=== PATIENT | female | born 1935 | race Caucasian/White ===

== ENCOUNTER 2017-01-12 23:50 | Inpatient (IN) | payer MEDICARE, OTHER ==
--- NOTE | ~2017-01-12 | HP ---
History And Physical [place] [id number] [facility] [place]. [address] NAME: ADALGISA GRANGER : 33 STATUS : REG [facility]#: [id number] AGE: 81 ADM/REG DATE : 01/12/17 MR#: [id number] REPORT SERV DATE: 01/13/17 DICTATED BY: ODALYS JAMES III DATE: 01/13/17 REPORT STATUS : Draft TRANSCRIBED BY: MODMeeta DATE: 01/13/17 DATE OF ADMISSION: 01/12/2017 HISTORY OF PRESENT ILLNESS: This 81-year-old female was admitted to the hospital emergently with evidence for pneumatosis and small bowel obstruction. The patient complains of sudden onset of abdominal pain which began approximately 6 p.m. yesterday. The patient describes diffuse, nonlocalizing, severe abdominal pain. The patient states the pain is 10/10. This is associated with nausea and vomiting. The patient presented to the emergency room and was found on CT scan to have a small bowel volvulus with pneumatosis. Per the patient, she apparently had a similar episode approximately one year ago. At that time, she was seen by Dr. Hansel Hyatt. Subsequent workup including repeat CT scan showed no evidence for pneumatosis and surgery was not required. The patient has had a previous colectomy by Dr. Hyatt. He was contacted, but is not cashier and salesperson and his covering physician does not come to this hospital and I was, therefore, asked to see the patient. The patient describes the pain as 10/10. PAST MEDICAL HISTORY: 1. 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 2. History of colostomy closure. 3. History of right colectomy for carcinoid tumor. 4. History of atherosclerotic disease. 5. Glaucoma. 6. Hypothyroidism. 7. Irritable bowel syndrome. 8. Gastroesophageal reflux disease. PAST SURGICAL HISTORY: Includes colectomy with colostomy, and colostomy closure with resection of the ileocecal junction for carcinoid tumor. ALLERGIES: DICYCLOMINE. MEDICATIONS: FiberCon, Tums, vitamin D, Estrace, Synthroid, Claritin, magnesium oxide, and Detrol. FAMILY HISTORY: Unremarkable. REVIEW OF SYSTEMS: The patient's 14-point review of systems is otherwise unremarkable. PHYSICAL EXAMINATION: GENERAL: This is a female, in no acute distress. She is alert and appropriate. She appears chronically ill. HEENT: Unremarkable. Cranial nerves II through XII are normal. LUNGS: Clear. History And Physical [address] [place]. [address] NAME: ADALGISA GRANGER : 34 STATUS : REG [facility] PAT#: [id number] AGE: 81 ADM/REG DATE : 01/12/17 MR#: [id number] REPORT SERV DATE: 01/13/17 DICTATED BY: ODAYLS JAMES III DATE: 01/13/17 REPORT STATUS : Draft TRANSCRIBED BY: RANI DATE: 01/13/17 CARDIAC: Normal. ABDOMEN: Distended and diffusely tender with guarding and peritoneal signs. VITAL SIGNS: Blood pressure 125/86, temperature 98, and pulse 67. EXTREMITIES: Unremarkable. Again, her abdomen is distended with diffuse tenderness and guarding. LABORATORY DATA: CT scan of the abdomen and pelvis, which I reviewed shows evidence for small bowel volvulus with obstruction and ischemic bowel. This is an obstruction with extensive pneumatosis. White blood cell count 8.6 and hematocrit 37. Electrolytes are unremarkable. Calcium 6.2. Lipase is normal. ASSESSMENT: 1. An 81-year-old female with acute small bowel volvulus associated with obstruction, pneumatosis indicating mesenteric ischemia, and impending perforation. 2. History of previous sigmoid colectomy with colostomy. 3. History of colostomy closure. 4. History of resection of ileocecal junction for carcinoid tumor in the past. PLAN: The patient will be taken emergently to the operating room for laparotomy with probable bowel resection. On this procedure, the risks, benefits, and alternatives, including but not limited to the risk for bleeding, infection, enterotomy, injury to abdominal structure, postop small bowel obstruction, ileus, incisional hernia, dehiscence, anastomotic leak, resulting in peritonitis, sepsis, and , and unforeseen complications including deep venous thrombosis, pulmonary embolus, myocardial infarction, stroke, pneumonia, , have been explained to the patient and family at length. The fact that this is a major operation in an attempt to save the patient's life and without surgery in this setting, her chance for survival was very small has been explained. The patient and family had questions which were answered. They clearly understand the risks and agreed to surgery as planned. CHULA/RANI Odalys James III, M.D. / [id number] CC: Tray Olivarez III, II
--- NOTE | ~2017-01-12 | DS ---
Discharge Summary [facility] [address] [place]. [address] NAME: ADALGISA GRANGER : 34 STATUS : DIS IN PAT#: [id number] AGE: 81 ADM/REG DATE : 01/13/17 MR#: [id number] REPORT SERV DATE: 01/27/17 DICTATED BY: ODALYS JAMES III DATE: 01/26/17 REPORT STATUS : Draft TRANSCRIBED BY: RANI DATE: 01/26/17 Data Collection from hospitalization DISCHARGE DIAGNOSES: 1. Small bowel volvulus with small bowel obstruction. 2. History of carcinoid tumor status post sigmoid colectomy with colostomy-colostomy closure. 3. History of atherosclerotic disease. 4. Glaucoma. 5. Hypothyroidism. 6. Irritable bowel syndrome. 7. Gastroesophageal reflux disease. CONSULTATIONS: None. PROCEDURES PERFORMED: 1. Laparotomy with lysis of adhesions and correction of small bowel volvulus, 01/13/2017. 2. CT scan of the abdomen and pelvis without contrast, 01/12/2017. DISCHARGE MEDICATIONS: FiberCon one tablet every morning, Tums 500 mg twice a day, vitamin D 50,000 units on Wednesdays and Sundays, Estrace vaginal cream one application vaginally on Wednesdays and Sundays, Synthroid 100 mcg every morning, Claritin 10 mg every morning, Mag- Ox 800 mg twice a day, Percocet 7.5/325 one tablet three times a day as needed, Myrbetriq as instructed, Detrol LA as instructed, ketamine/cyclobenzaprine/gabapentin/lidocaine one application topically daily as needed, Travatan one drop at bedtime. CONDITION AT DISCHARGE: Stable. DISPOSITION: The patient was discharged home on a soft diet with activities as instructed. She would follow up with me two weeks following discharge. HOSPITAL COURSE: This is an 81-year-old female, who to the hospital emergently with evidence for pneumatosis and small bowel obstruction. The patient had complained of the sudden onset of abdominal pain, which began at approximately 6 p.m. on the day prior to admission. The patient described diffuse nonlocalizing severe abdominal pain. The patient said the pain was 10/10 and was associated with nausea and vomiting. The patient presented to the emergency room and was found on CT scan to have a small bowel volvulus with pneumatosis. According to the patient, she apparently had a similar episode approximately one year ago. At that time, she was seen by Dr. Nayan Hyatt. Subsequent workup including repeat CT scan showed no evidence for pneumatosis and surgery was not required. The patient had had a previous colectomy. The pain was described as being 10/10. She was admitted to the hospital at this time for further evaluation and treatment. Upon admission, a CT scan of the abdomen and pelvis showed evidence for small bowel volvulus with obstruction and ischemic bowel. This was an obstruction with extensive pneumatosis. It was felt that the patient would need to be taken emergently to the operating room. She agreed to proceed. She was taken to the operating room, where she underwent the above- mentioned procedure. She tolerated this well and there were no complications. On postop Discharge Summary [address] [place]. [address] NAME: ADALGISA GRANGER : 34 STATUS : DIS IN PAT#: [id number] AGE: 81 ADM/REG DATE : 01/13/17 MR#: [id number] REPORT SERV DATE: 01/27/17 DICTATED BY: ODALYS JAMES III DATE: 01/26/17 REPORT STATUS : Draft TRANSCRIBED BY: RANI DATE: 01/26/17 day #1, she was evaluated by Physical Therapy. She still reported some abdominal pain after surgery. She was ambulating in the rasheed. The Avalos catheter was going to be removed. She was doing well with activity with minimal assistance. On the , she had no new complaints. She remained afebrile. NG tube was still in place. On the , the NG tube was removed. She was progressing well. She was alert and comfortable. Clear liquids were started. Discharge planning was performed. We advanced her diet. On 01/18/2017, she was eating well and passing stool. She was wanting to go home. Discharge instructions were given. Due to her improved and stable condition, she was discharged home with the above- stated instructions. Information collected by: Felicia Watts I submit the above information as my discharge summary. LUIS DANIEL/MODL Odalys James III, M.D. / [id number] CC: Tray Olivarez III, MAX RUSSELL II
--- NOTE | ~2017-01-12 | OP ---
Record Of Operation [facility] [address] [place]. [address] NAME: ADALGISA GRANGER : 33 STATUS : ADM IN [facility]#: [id number] AGE: 81 ADM/REG DATE : 01/13/17 MR#: [id number] REPORT SERV DATE: 01/17/17 DICTATED BY: ODALYS JAMES III DATE: 01/13/17 REPORT STATUS : Draft TRANSCRIBED BY: MODL DATE: 01/13/17 DATE OF PROCEDURE: 01/13/2017 PREOPERATIVE DIAGNOSES: Small bowel volvulus associated with acute small bowel obstruction, and pneumatosis, and impending mesenteric ischemia. POSTOPERATIVE DIAGNOSIS: Small bowel volvulus with small bowel obstruction. PROCEDURE: Laparotomy with lysis of adhesions and correction of small bowel volvulus. SURGEON: Odalys James M.D. ANESTHESIA: General with intubation. COMPLICATIONS: None. ESTIMATED BLOOD LOSS: 30 mL. SPECIMENS: None. DRAINS: Tracy in subcutaneous tissue. LAP AND SPONGE COUNT: Correct x3. BRIEF HISTORY: This 81-year-old female, presented to the emergency room with evidence for acute abdominal pain associated with radiographic evidence for small bowel obstruction, associated with of volvulus of the small bowel and pneumatosis. It was felt that emergent laparotomy was indicated with possible bowel resection. This procedure, the risks, benefits, and alternatives, including but not limited to the risk for bleeding, infection, enterotomy, injury to any abdominal structure, postop small bowel obstruction, ileus, incisional hernia, dehiscence, anastomotic leak, resulting in peritonitis, sepsis, and , recurrent volvulus and unforeseen complications including deep venous thrombosis, pulmonary embolus, myocardial infarction, stroke, pneumonia, and were fully and completely explained to the patient and family at length prior to the surgery. The fact that this was a major operation with risk for major morbidity and mortality was explained. The expected length of recovery was explained. The patient and family had questions which were answered. They fully understood the risks and agreed to the surgery as planned. FINDINGS: The patient has volvulus of the distal to mid small bowel. The small bowel proximal to this was massively dilated and the small bowel was clearly obstructed. There appeared to be fecalization of the small bowel proximally and this obstruction appeared to be chronic in nature. The proximal small bowel was markedly dilated about the size of the patient's colon. The bowel was viable with no evidence for ischemia. The patient had multiple extremely large diverticula along the entire length of the small bowel. This accounted for the "pneumatosis," which was seen on the CT scan. Multiple, rtj-[id number]-wp- count, massive in size diverticula were involved associated with the entire small bowel. Record Of Operation [facility] [address] [place]. [address] NAME: ADALGISA GRANGER : 34 STATUS : ADM IN PAT#: [id number] AGE: 81 ADM/REG DATE : 01/13/17 MR#: [id number] REPORT SERV DATE: 01/17/17 DICTATED BY: ODALYS JAMES III DATE: 01/13/17 REPORT STATUS : Draft TRANSCRIBED BY: RANI DATE: 01/13/17 DESCRIPTION OF PROCEDURE: After being properly identified and after discussing the risks of surgery with the patient and family again in the preoperative area, she was taken to the operating room and placed in the supine position on the operating room table. General anesthesia was administered. She was intubated without difficulty. The abdomen was prepped and draped sterilely in the usual fashion. A Avalos catheter was inserted. After an appropriate "time-out" per JCAHO standards, a midline incision was made from several centimeters below the xiphoid process to just above the umbilicus. The incision was continued through subcutaneous tissue. Hemostasis was controlled with the cautery. The incision was continued through the fascia. The abdominal cavity was entered. There were numerous adhesions between the omentum and the underside of the abdominal wall. Using sharp dissection, these adhesions were carefully divided. The small bowel proximally was noted to be massively dilated and containing a thick almost solid white material consistent with a chronic obstruction of the small bowel. We continued our dissection into the lower abdomen, we identified a clear volvulus. The small bowel was twisted around itself with a near complete obstruction. The small bowel distal to this was normal in size, and collapsed. It appeared to be a chronic volvulus. The bowel was viable and pink, and not ischemic. The patient had multiple massive diverticula along the entire length of the small bowel. This apparently accounted for the pneumatosis which were seen on the CT scan. There was no evidence for perforation or ischemia. Using sharp dissection, the adhesions associated with the volvulus were carefully divided. The volvulus was then completely reduced. The small bowel was inspected from the ligament of Treitz to the terminal ileum. There were no other points of volvulus. No other points of obstruction were seen. The bowel contents were noted to pass easily through the point where it had been obstructed. The exploration was otherwise unremarkable. Hemostasis was assured. The fascia was closed with a running looped #1 PDS suture. The subcutaneous tissue was closed with a running 3-0 chromic suture over a Tracy drain, which was brought out through the inferior aspect of the incision. The skin was closed with a running subcuticular 4-0 Monocryl stitch. Dressings were applied. Anesthesia was reversed. The patient was taken to the recovery room in stable condition. She tolerated the procedure well. Her family was informed the results of the surgery. The patient will remain in the hospital for postoperative care. ADDENDUM: It should be noted that the patient had a very severe small bowel volvulus as the obvious etiology for obstruction. It should be noted that the initial CT scan report, reported by the [facility], reported this volvulus. This was not even mentioned in the final report from [facility]. However, was definitely present clinically at the time of surgery. It also should be noted that the patient has severe diverticular disease with multiple large chronic diverticula of the entire small bowel. This is likely the etiology for the patient's "pneumatosis", seen on CT scan. This will likely be present on future scans. [facility] Record Of Operation [address] [address] NAME: ADALGISA GRANGER : 33 STATUS : ADM IN [facility]#: [id number] AGE: 81 ADM/REG DATE : 01/13/17 MR#: [id number] REPORT SERV DATE: 01/17/17 DICTATED BY: ODALYS JAMES III DATE: 01/13/17 REPORT STATUS : Draft TRANSCRIBED BY: RANI DATE: 01/13/17 Odalys James III, M.D. / [id number] / [id number] CC: Tray Olivarez III, II
[~2017-01-12 23:50] MED LIST: BENTYL10 PO; BIOTIN PO; CLARIT10 PO; DETROLLA4 PO; DRISDOL50000 UNT PO; ENABLEX7.5 PO; ESTRACE V; HALF81 PO; IMOD PO; LUMIGAN2.5 ML OPH; MAGOX4 PO; NEXIUM40 PO; OTC FIBER TABLET PO; OTC FISH OIL PO; PEP20 PO; SALINE EYE OPH; SIMBRINZA 1%-0.28 ML OPH; SYN075 PO; SYN1 PO; TRAVATAN Z0.004 % OPH; TUMSROLL PO; VITAMIN B-121000 MC1 SL; XIFAXAN550 MG PO; ZOCOR40 PO
[2017-01-13 00:12] LABS: BASOPHILS 0.1 %; BASOPHILS ABSOLUTE 0.01 10/3/uL (0.0-0.16); EOSINOPHILS 0.7 %; EOSINOPHILS ABSOLUTE 0.06 10/3/uL (0.0-0.53); HEMATOCRIT 37.1 % (36.0-48.0); HEMOGLOBIN 11.8 g/dL (12.0-16.0); IMMATURE GRANULOCYTES 0.2 %; IMMATURE GRANULOCYTES ABSOLUTE 0.02 10/3/uL (0.0-0.11); LYMPHOCYTES 9.5 %; LYMPHOCYTES ABSOLUTE 0.81 10/3/uL (0.67-4.30); MEAN CORPUS HGB CONC 31.8 g/dL (32.0-36.0); MEAN CORPUSCULAR HEMOGLOB 25.4 pg (26.0-34.0); MEAN CORPUSCULAR VOLUME 79.8 fL (80-100); MEAN PLATELET VOLUME 11.3 fL (9.2-13.0); MONOCYTES ABSOLUTE 0.43 10/3/uL (0.21-1.20); NEUTROPHILS 84.5 %; NEUTROPHILS ABSOLUTE 7.23 10/3/uL (2.02-8.40); PLATELET COUNT 278 10/3/uL (150-400); RBC DISTRIBUTION WIDTH 15.5 % (12.0-16.0); RED CELL COUNT 4.65 10/6/uL (4.0-5.6)
[2017-01-13 00:13] LABS: ER CBC TAT 0 Hrs 10 Mins; MANUAL DIFF NO %; WHITE BLOOD CELLS 8.6 10/3/uL (4.5-10.5)
[2017-01-13 00:30] LABS: A/G RATIO 1.2 (0.7-1.9); ALBUMIN 3.1 G/DL (3.5-5.0); ALKALINE PHOSPHATASE 91 U/L (45-117); BUN (BLOOD UREA NITROGEN) 21 MG/DL (6-23); CALCIUM, SERUM 8.3 MG/DL (8.5-10.4); CHLORIDE, SERUM 109 MMOL/L (96-112); CO2 (CARBON DIOXIDE) 25 MMOL/L (24-34); CREATININE 0.53 MG/DL (0.55-1.02); GFR AFRICAN AMERICAN 102 ML/MIN (>=60); GFR NON AFRICAN AMERICAN 88 ML/MIN (>=60); GLOBULIN 2.6 G/DL (2.5-4.1); POTASSIUM, SERUM 3.6 MMOL/L (3.5-5.3); SGOT(AST) 13 U/L (5-40); SGPT(ALT) 17 U/L (5-65); SODIUM, SERUM 143 MMOL/L (135-148); TOTAL BILIRUBIN 0.5 MG/DL (0-1.2); TOTAL PROTEIN 5.7 G/DL (6.0-8.5)
[2017-01-13 00:31] LABS: GLUCOSE, SERUM 117 MG/DL (60-99)
[2017-01-13] MEDS ORDERED: MAGOX4 PO (00:49)
[2017-01-13] MEDS ORDERED: ESTRACE VAGIN42.5 GM V (00:51)
[2017-01-13] MEDS ORDERED: MYRBETRIQ (00:54)
[2017-01-13] MEDS ORDERED: DETROL LA (00:55)
[2017-01-13] MEDS ORDERED: VITD PO (00:56)
[2017-01-13] MEDS ORDERED: TUMSROLL PO (00:56)
[2017-01-13] MEDS ORDERED: SYN1 PO (00:56)
[2017-01-13] MEDS ORDERED: FIBERCON PO (00:56)
[2017-01-13] MEDS ORDERED: CLARIT10 PO (00:57)
[2017-01-13] MEDS ORDERED: [UNRECOGNIZED DRUG - CODE] TOP (00:59)
[2017-01-13] MEDS ORDERED: TRAVATAN Z 0.004% OPH (00:59)
[2017-01-13 01:39] LABS: ASCORBIC ACID (UR NOT ORDER) NEG (NEG); BILIRUBIN, URINE NEGATIVE (NEG); ER URINALYSIS TAT 0 Hrs 00 Mins; KETONE, URINE 20 MG/DL (NEG); LEUKOCYTE ESTERASE(NOT OR NEG (NEG); NITRITE (URINE) NEG (NEG); WBC (NOT ORDERED) (RFLEX) 2 (0-5)
[2017-01-14 07:23] LABS: CALCIUM, SERUM 7.9 MG/DL (8.5-10.4); CHLORIDE, SERUM 110 MMOL/L (96-112); CO2 (CARBON DIOXIDE) 24 MMOL/L (24-34); CREATININE 0.59 MG/DL (0.55-1.02); GFR AFRICAN AMERICAN 99 ML/MIN (>=60); GFR NON AFRICAN AMERICAN 85 ML/MIN (>=60); GLUCOSE, SERUM 106 MG/DL (60-99); POTASSIUM, SERUM 4.1 MMOL/L (3.5-5.3); SODIUM, SERUM 143 MMOL/L (135-148)
[2017-01-14 07:24] LABS: BUN (BLOOD UREA NITROGEN) 16 MG/DL (6-23)
[2017-01-14 08:51] LABS: BASOPHILS 0.4 %; BASOPHILS ABSOLUTE 0.02 10/3/uL (0.0-0.16); EOSINOPHILS 6.6 %; EOSINOPHILS ABSOLUTE 0.33 10/3/uL (0.0-0.53); HEMOGLOBIN 9.8 g/dL (12.0-16.0); IMMATURE GRANULOCYTES 0.2 %; IMMATURE GRANULOCYTES ABSOLUTE 0.01 10/3/uL (0.0-0.11); LYMPHOCYTES 15.8 %; LYMPHOCYTES ABSOLUTE 0.79 10/3/uL (0.67-4.30); MEAN CORPUS HGB CONC 30.6 g/dL (32.0-36.0); MEAN CORPUSCULAR HEMOGLOB 25.5 pg (26.0-34.0); MEAN PLATELET VOLUME 11.6 fL (9.2-13.0); MONOCYTES 10.2 %; MONOCYTES ABSOLUTE 0.51 10/3/uL (0.21-1.20); NEUTROPHILS 66.8 %; NEUTROPHILS ABSOLUTE 3.35 10/3/uL (2.02-8.40); PLATELET COUNT 230 10/3/uL (150-400); RBC DISTRIBUTION WIDTH 15.9 % (12.0-16.0); RED CELL COUNT 3.85 10/6/uL (4.0-5.6)
[2017-01-14 08:54] LABS: MANUAL DIFF NO %; MEAN CORPUSCULAR VOLUME 83.1 fL (80-100)
[2017-01-15 06:02] LABS: BASOPHILS 0.3 %; BASOPHILS ABSOLUTE 0.01 10/3/uL (0.0-0.16); EOSINOPHILS 16.6 %; EOSINOPHILS ABSOLUTE 0.55 10/3/uL (0.0-0.53); HEMATOCRIT 30.1 % (36.0-48.0); HEMOGLOBIN 9.3 g/dL (12.0-16.0); LYMPHOCYTES 17.8 %; LYMPHOCYTES ABSOLUTE 0.59 10/3/uL (0.67-4.30); MEAN CORPUS HGB CONC 30.9 g/dL (32.0-36.0); MEAN CORPUSCULAR HEMOGLOB 25.5 pg (26.0-34.0); MEAN CORPUSCULAR VOLUME 82.5 fL (80-100); MEAN PLATELET VOLUME 11.2 fL (9.2-13.0); MONOCYTES 10.9 %; MONOCYTES ABSOLUTE 0.36 10/3/uL (0.21-1.20); NEUTROPHILS 54.4 %; PLATELET COUNT 217 10/3/uL (150-400); RBC DISTRIBUTION WIDTH 15.8 % (12.0-16.0); RED CELL COUNT 3.65 10/6/uL (4.0-5.6); WHITE BLOOD CELLS 3.3 10/3/uL (4.5-10.5)
[2017-01-15 06:05] LABS: MANUAL DIFF NO %
[2017-01-15 06:19] LABS: CALCIUM, SERUM 8.1 MG/DL (8.5-10.4); CHLORIDE, SERUM 112 MMOL/L (96-112); CO2 (CARBON DIOXIDE) 24 MMOL/L (24-34); CREATININE 0.39 MG/DL (0.55-1.02); GFR AFRICAN AMERICAN 113 ML/MIN (>=60); GFR NON AFRICAN AMERICAN 98 ML/MIN (>=60); GLUCOSE, SERUM 102 MG/DL (60-99); POTASSIUM, SERUM 3.9 MMOL/L (3.5-5.3); SODIUM, SERUM 144 MMOL/L (135-148)
[2017-01-15 06:22] LABS: BUN (BLOOD UREA NITROGEN) 10 MG/DL (6-23)
[2017-01-16 06:47] LABS: BASOPHILS 0.5 %; BASOPHILS ABSOLUTE 0.02 10/3/uL (0.0-0.16); EOSINOPHILS ABSOLUTE 0.67 10/3/uL (0.0-0.53); HEMATOCRIT 32.6 % (36.0-48.0); HEMOGLOBIN 10.2 g/dL (12.0-16.0); IMMATURE GRANULOCYTES 0.3 %; IMMATURE GRANULOCYTES ABSOLUTE 0.01 10/3/uL (0.0-0.11); LYMPHOCYTES 12.9 %; LYMPHOCYTES ABSOLUTE 0.51 10/3/uL (0.67-4.30); MANUAL DIFF NO %; MEAN CORPUS HGB CONC 31.3 g/dL (32.0-36.0); MEAN CORPUSCULAR HEMOGLOB 25.2 pg (26.0-34.0); MEAN CORPUSCULAR VOLUME 80.7 fL (80-100); MEAN PLATELET VOLUME 11.9 fL (9.2-13.0); MONOCYTES 11.2 %; MONOCYTES ABSOLUTE 0.44 10/3/uL (0.21-1.20); NEUTROPHILS 58.1 %; NEUTROPHILS ABSOLUTE 2.29 10/3/uL (2.02-8.40); PLATELET COUNT 101 10/3/uL (150-400); RBC DISTRIBUTION WIDTH 15.7 % (12.0-16.0); RED CELL COUNT 4.04 10/6/uL (4.0-5.6); WHITE BLOOD CELLS 3.9 10/3/uL (4.5-10.5)
[2017-01-16 06:57] LABS: CALCIUM, SERUM 8.1 MG/DL (8.5-10.4); CHLORIDE, SERUM 109 MMOL/L (96-112); CO2 (CARBON DIOXIDE) 25 MMOL/L (24-34); CREATININE 0.42 MG/DL (0.55-1.02); GFR AFRICAN AMERICAN 111 ML/MIN (>=60); GFR NON AFRICAN AMERICAN 95 ML/MIN (>=60); POTASSIUM, SERUM 3.7 MMOL/L (3.5-5.3); SODIUM, SERUM 144 MMOL/L (135-148)
[2017-01-16 06:58] LABS: BUN (BLOOD UREA NITROGEN) 5 MG/DL (6-23); GLUCOSE, SERUM 123 MG/DL (60-99)
[2017-01-17 06:06] LABS: BASOPHILS 0.5 %; BASOPHILS ABSOLUTE 0.02 10/3/uL (0.0-0.16); EOSINOPHILS ABSOLUTE 0.91 10/3/uL (0.0-0.53); HEMATOCRIT 32.4 % (36.0-48.0); HEMOGLOBIN 10.3 g/dL (12.0-16.0); IMMATURE GRANULOCYTES 0.3 %; IMMATURE GRANULOCYTES ABSOLUTE 0.01 10/3/uL (0.0-0.11); LYMPHOCYTES 23.5 %; LYMPHOCYTES ABSOLUTE 0.93 10/3/uL (0.67-4.30); MEAN CORPUS HGB CONC 31.8 g/dL (32.0-36.0); MEAN CORPUSCULAR HEMOGLOB 25.3 pg (26.0-34.0); MEAN CORPUSCULAR VOLUME 79.6 fL (80-100); MEAN PLATELET VOLUME 10.4 fL (9.2-13.0); MONOCYTES 10.4 %; MONOCYTES ABSOLUTE 0.41 10/3/uL (0.21-1.20); NEUTROPHILS 42.3 %; NEUTROPHILS ABSOLUTE 1.67 10/3/uL (2.02-8.40); RBC DISTRIBUTION WIDTH 15.7 % (12.0-16.0); RED CELL COUNT 4.07 10/6/uL (4.0-5.6)
[2017-01-17 06:14] LABS: BUN (BLOOD UREA NITROGEN) 6 MG/DL (6-23); CALCIUM, SERUM 8.3 MG/DL (8.5-10.4); CHLORIDE, SERUM 110 MMOL/L (96-112); CO2 (CARBON DIOXIDE) 27 MMOL/L (24-34); CREATININE 0.43 MG/DL (0.55-1.02); GFR AFRICAN AMERICAN 110 ML/MIN (>=60); GFR NON AFRICAN AMERICAN 95 ML/MIN (>=60); POTASSIUM, SERUM 3.7 MMOL/L (3.5-5.3); SODIUM, SERUM 145 MMOL/L (135-148)
[2017-01-17 06:15] LABS: GLUCOSE, SERUM 93 MG/DL (60-99)
[2017-01-17 06:17] LABS: MANUAL DIFF NO %; PLATELET COUNT 260 10/3/uL (150-400)
[2017-01-18 06:38] LABS: HEMATOCRIT 32.3 % (36.0-48.0); HEMOGLOBIN 10.2 g/dL (12.0-16.0); MEAN CORPUS HGB CONC 31.6 g/dL (32.0-36.0); MEAN CORPUSCULAR HEMOGLOB 25.5 pg (26.0-34.0); MEAN CORPUSCULAR VOLUME 80.8 fL (80-100); MEAN PLATELET VOLUME 10.5 fL (9.2-13.0); PLATELET COUNT 254 10/3/uL (150-400); RBC DISTRIBUTION WIDTH 15.8 % (12.0-16.0); WHITE BLOOD CELLS 4.6 10/3/uL (4.5-10.5)
[2017-01-18 06:42] LABS: MANUAL DIFF YES %
[2017-01-18 06:53] LABS: BUN (BLOOD UREA NITROGEN) 7 MG/DL (6-23); CALCIUM, SERUM 8.2 MG/DL (8.5-10.4); CHLORIDE, SERUM 106 MMOL/L (96-112); CO2 (CARBON DIOXIDE) 26 MMOL/L (24-34); CREATININE 0.48 MG/DL (0.55-1.02); GFR AFRICAN AMERICAN 106 ML/MIN (>=60); GFR NON AFRICAN AMERICAN 91 ML/MIN (>=60); GLUCOSE, SERUM 85 MG/DL (60-99); POTASSIUM, SERUM 3.9 MMOL/L (3.5-5.3); SODIUM, SERUM 141 MMOL/L (135-148)
[2017-01-18 07:06] LABS: BURR CELLS 1+ (3-10/OIF) (0-2/OIF); EOSINOPHILS 21 %; EOSINOPHILS ABSOLUTE (CALC) 0.97 10/3/uL (0.0-0.53); LYMPHOCYTES 21 %; LYMPHOCYTES ABSOLUTE (CALC) 0.97 10/3/uL (0.67-4.30); MONOCYTES 13 %; NEUTROPHILS ABSOLUTE (CALC) 2.07 10/3/uL (2.02-8.40); PLATELET ESTIMATE ADQ (ADEQUATE); POIKILOCYTOSIS 1+ (5-10/OIF) (0-5/OIF); SEGMENTED NEUTROPHIL (0) 45 %; TOTAL NUCLEATED CELLS 100
[2017-01-18] MEDS ORDERED: PERCOCET 7.5/321 TAB PO (07:44)
[2017-05-01] MEDS ORDERED: FIBERCON PO (05:57)
[2017-05-01] MEDS ORDERED: BIOTIN5 MG PO (05:57)
[2017-05-01] MEDS ORDERED: VITAMIN B-121000 MC1 SL (05:58)
[2017-05-01] MEDS ORDERED: VITD PO (05:59)
[2017-05-01] MEDS ORDERED: ESTRACE VAGIN42.5 GM V (06:00)
[2017-05-01] MEDS ORDERED: PEP20 PO (06:00)
[2017-05-01] MEDS ORDERED: KRILLOIL PO (06:01)
[2017-05-01] MEDS ORDERED: GENTEAL 15 ML O15 ML OPH (06:01)
[2017-05-01] MEDS ORDERED: CLARIT10 PO (06:02)
[2017-05-01] MEDS ORDERED: SYN1 PO (06:02)
[2017-05-01] MEDS ORDERED: MAGOX4 PO (06:02)
[2017-05-01] MEDS ORDERED: MYRBETRIQ25 MG PO (06:04)
[2017-05-01] MEDS ORDERED: DETROLLA4 PO (06:04)
[2017-05-01] MEDS ORDERED: [UNRECOGNIZED DRUG - CODE] (06:05)
[2017-05-01] MEDS ORDERED: TRAVATAN Z OPH (06:06)
[2017-05-02] MEDS ORDERED: MCZ25 PO (14:36)
== END 2017-01-18 09:31 | disposition home or self-care (01) | DRG 331 ==
LOC: SDC 23:50 → 4SO 01-13 05:52
PROVIDERS: Specialist; Surgery
DX: K56.5 Intestinal adhesions [bands] with obstruction (postinfection) (principal); K66.8 Other specified disorders of peritoneum; E03.9 Hypothyroidism, unspecified; K56.2 Volvulus; Z85.038 Personal history of other malignant neoplasm of large intestine; Z90.49 Acquired absence of other specified parts of digestive tract; K21.9 Gastro-esophageal reflux disease without esophagitis; K58.9 Irritable bowel syndrome, unspecified; H40.9 Unspecified glaucoma; Z88.8 Allergy status to other drugs, medicaments and biological substances; K57.10 Diverticulosis of small intestine without perforation or abscess without bleeding; K63.89 Other specified diseases of intestine
CPT/HCPCS: 74176; 80048; 80053; 81001; 83605; 83690; 85025; 93005; 96374; 97116-GP; 97161-GP; 99285; A9270-GY; C9113; G8978-CK-GP; G8979-CI-GP; J0330; J0360; J0690; J1885; J2270; J2405; J2543; J2550; J2710; J2765; J3010

== ENCOUNTER 2017-02-05 11:26 | Inpatient (IN) | payer MEDICARE, OTHER ==
--- NOTE | ~2017-02-05 | DS ---
Discharge Summary [facility] [address] [place]. [address] NAME: ADALGISA GRANGER : 34 STATUS : DIS IN PAT#: [id number] AGE: 81 ADM/REG DATE : 02/05/17 MR#: [id number] REPORT SERV DATE: 02/22/17 DICTATED BY: ODALYS JAMES III DATE: 02/21/17 REPORT STATUS : Draft TRANSCRIBED BY: RANI DATE: 02/21/17 Data Collection from hospitalization DISCHARGE DIAGNOSES: 1. Partial small bowel obstruction - resolved. 2. History of sigmoid colectomy with colostomy in the past as well as history of colostomy closure. 3. History of right colectomy for carcinoid tumor. 4. History of atherosclerotic CV disease. 5. Hypothyroidism. 6. Glaucoma. 7. Irritable bowel syndrome. 8. Gastroesophageal reflux disease. CONSULTATIONS: None. PROCEDURES PERFORMED: CT scan of the abdomen and pelvis without contrast on 02/05/2017. MEDICATIONS: Biotin 5 mg daily, FiberCon one tablet every morning, Tums 500 mg twice a day, vitamin B12 1000 mcg sublingually daily, vitamin D 40839 units on Wednesdays and Sundays, Estrace one application vaginally on Wednesdays and Sundays, Pepcid 20 mg daily as needed, GenTeal one to two drops three times a day as needed, Krill oil one capsule daily, Xalatan one drop at bedtime, Synthroid 100 mcg every morning, Claritin 10 mg every morning, Mag-Ox 800 mg twice a day, Myrbetriq 25 mg daily, Detrol LA 4 mg daily, keto/cyclo/jerry/lido one application topically daily as needed, and Travatan one drop at bedtime in both eyes. CONDITION AT DISCHARGE: Stable. DISPOSITION: The patient was discharged home on a soft diet with activities as instructed. She would follow up with me as needed. HOSPITAL COURSE: This is an 81-year-old female who presented to the hospital emergently and was found to have evidence of a small bowel obstruction. The patient complained of a 24- hour history of crampy abdominal pain that was associated with nausea and vomiting. The patient presented to the emergency room and was found to have evidence for small bowel obstruction radiographically. The patient is status post recent laparotomy for small bowel volvulus with severe small bowel obstruction. She had extensive adhesions at that time and underwent extensive lysis of adhesions. Her postop recovery was uneventful. At the time of her discharge, she had been afebrile and tolerating her diet well with normal bowel function. She had been seen back in the office for followup and was doing well. A CT scan of the abdomen and pelvis showed evidence for distal small bowel obstruction. She was admitted to the hospital at this time for further evaluation and treatment. Upon admission, she was started on parenteral fluids, bowel rest, and NG suction. It was explained to the patient and her family that we would try to manage this nonoperatively if possible. It was explained to them that occasionally nonoperative management is not successful, and in that case, surgical intervention would be required. The following day, she said she was feeling better. She had no abdominal pain, nausea, or vomiting. KUB Discharge Summary [address] [place]. [address] NAME: ADALGISA GRANGER : 34 STATUS : DIS IN PAT#: [id number] AGE: 81 ADM/REG DATE : 02/05/17 MR#: [id number] REPORT SERV DATE: 02/22/17 DICTATED BY: ODALYS JAMES III DATE: 02/21/17 REPORT STATUS : Draft TRANSCRIBED BY: RANI DATE: 02/21/17 showed gas in the colon. The partial small bowel obstruction seemed to be improving. She remained n.p.o. with the NG tube in place. Repeat KUB was ordered. On 02/08/2017, she had no complaints of abdominal pain. She had no nausea or vomiting. She was passing more gas per rectum. A small bowel followthrough was going to be performed. Over the next couple of days, she continued to progress. She was feeling much better. She began passing stools. NG tube was removed. Clear liquids were started. Discharge planning was performed. Small bowel followthrough was normal. On 02/10/2017, she felt well and wanted to go home. She was tolerating liquids well. She had no nausea or vomiting. The partial small bowel obstruction had resolved. Discharge instructions were given. Due to her improved and stable condition, she was discharged home with the above-stated instructions. Information collected by: Felicia Watts I submit the above information as my discharge summary. LUIS DANIEL/RANI Odalys James III, M.D. / [id number] CC: Tray Olivarez III, MAX [facility]
--- NOTE | ~2017-02-05 | HP ---
History And Physical [address] [place]. [address] NAME: ADALGISA GRANGER : 33 STATUS : ADM IN [facility]#: [id number] AGE: 81 ADM/REG DATE : 02/05/17 MR#: [id number] REPORT SERV DATE: 02/07/17 DICTATED BY: ODALYS ODELL III DATE: 02/07/17 REPORT STATUS : Draft TRANSCRIBED BY: MODMeeta DATE: 02/07/17 DATE OF ADMISSION: 02/05/2017 HISTORY OF PRESENT ILLNESS: This 81-year-old female was admitted to the hospital emergently with evidence for small bowel obstruction. The patient complains of a 24-hour history of crampy abdominal pain. This was associated with nausea and vomiting. The patient presented to the emergency room, was found to have evidence for small bowel obstruction radiographically. The patient is status post recent laparotomy for small bowel volvulus with severe small- bowel obstruction. She had extensive adhesions at that time and underwent extensive lysis of adhesions. Her postop recovery was uneventful. At the time of discharge, she was afebrile and tolerating diet well with normal bowel function. She had been seen back in the office for followup and was doing well. PAST MEDICAL HISTORY: 1. 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 2. History of colostomy closure. 3. History of right colectomy for carcinoid tumor. 4. History of atherosclerotic disease. 5. Hypothyroidism. 6. Glaucoma. 7. Irritable bowel syndrome. 8. Gastroesophageal reflux disease. PAST SURGICAL HISTORY: Includes colectomy with colostomy, colostomy closure with resection of the ileocecal junction for carcinoid tumor, and laparotomy for lysis of adhesions for recent volvulus. ALLERGIES: DICYCLOMINE. MEDICATIONS: As per medication list which I reviewed. FAMILY HISTORY: Unremarkable. REVIEW OF SYSTEMS: The patient's 14-point review of systems otherwise unremarkable. PHYSICAL EXAMINATION: GENERAL: This is a female, in no acute distress. She is alert and oriented x3. VITAL SIGNS: Blood pressure 125/59, temperature 97.9, pulse 60. HEENT: Unremarkable. Cranial nerves II through XII normal. LUNGS: Clear. CARDIAC: Normal. ABDOMEN: Slightly distended but completely soft and nontender. History And Physical [address] [place]. [address] NAME: ADALGISA GRANGER : 33 STATUS : ADM IN PAT#: [id number] AGE: 81 ADM/REG DATE : 02/05/17 MR#: [id number] REPORT SERV DATE: 02/07/17 DICTATED BY: ODALYS ODELL III DATE: 02/07/17 REPORT STATUS : Draft TRANSCRIBED BY: MODL DATE: 02/07/17 EXTREMITIES: Normal. LABORATORY DATA: CT scan of the abdomen and pelvis which I reviewed shows evidence for distal small bowel obstruction. ASSESSMENT: 81-year-old female with partial small bowel obstruction. PLAN: The patient will be admitted and started on parenteral fluids, bowel rest, and NG suction. I have explained to the patient and family that we will try to manage this nonoperatively if possible. I have explained to them that occasionally nonoperative management is not successful and in that case surgical intervention will be required. This plan has been explained to the patient and the family. Their questions have been answered. They understand and agree to this as planned. CHULA/RANI Odalys Odell III, M.D. / [id number] CC: Tray Olivarez III, II
[2017-02-05 11:18] LABS: BASOPHILS 0.1 %; BASOPHILS ABSOLUTE 0.01 10/3/uL (0.0-0.16); EOSINOPHILS 0.1 %; EOSINOPHILS ABSOLUTE 0.01 10/3/uL (0.0-0.53); ER CBC TAT 0 Hrs 08 Mins; HEMOGLOBIN 13.3 g/dL (12.0-16.0); IMMATURE GRANULOCYTES 0.1 %; IMMATURE GRANULOCYTES ABSOLUTE 0.01 10/3/uL (0.0-0.11); LYMPHOCYTES 11.6 %; LYMPHOCYTES ABSOLUTE 0.85 10/3/uL (0.67-4.30); MEAN CORPUS HGB CONC 32.6 g/dL (32.0-36.0); MEAN CORPUSCULAR HEMOGLOB 25.3 pg (26.0-34.0); MEAN CORPUSCULAR VOLUME 77.7 fL (80-100); MEAN PLATELET VOLUME 11.6 fL (9.2-13.0); MONOCYTES ABSOLUTE 0.88 10/3/uL (0.21-1.20); NEUTROPHILS 76.1 %; NEUTROPHILS ABSOLUTE 5.57 10/3/uL (2.02-8.40); PLATELET COUNT 324 10/3/uL (150-400); RED CELL COUNT 5.25 10/6/uL (4.0-5.6); WHITE BLOOD CELLS 7.3 10/3/uL (4.5-10.5)
[2017-02-05 11:19] LABS: HEMATOCRIT 40.8 % (36.0-48.0); MANUAL DIFF NO %
[~2017-02-05 11:26] MED LIST changes: +DETROL LA; +ESTRACE VAGIN42.5 GM V; +FIBERCON PO; +MYRBETRIQ; +PERCOCET 7.5/321 TAB PO; +TRAVATAN Z 0.004% OPH; +VITD PO; +[UNRECOGNIZED DRUG - CODE] TOP
[2017-02-05 11:32] LABS: A/G RATIO 0.9 (0.7-1.9); ALBUMIN 3.5 G/DL (3.5-5.0); ALKALINE PHOSPHATASE 124 U/L (45-117); BUN (BLOOD UREA NITROGEN) 27 MG/DL (6-23); CHLORIDE, SERUM 98 MMOL/L (96-112); CO2 (CARBON DIOXIDE) 27 MMOL/L (24-34); CREATININE 0.72 MG/DL (0.55-1.02); DIRECT BILIRUBIN 0.1 MG/DL (0.0-0.4); GFR AFRICAN AMERICAN 90 ML/MIN (>=60); GFR NON AFRICAN AMERICAN 78 ML/MIN (>=60); GLOBULIN 3.7 G/DL (2.5-4.1); GLUCOSE, SERUM 131 MG/DL (60-99); INDIRECT BILIRUBIN(NOT ORDER) 0.5 MG/DL (0.1-0.9); POTASSIUM, SERUM 3.4 MMOL/L (3.5-5.3); SGOT(AST) 12 U/L (5-40); SGPT(ALT) 15 U/L (5-65); SODIUM, SERUM 139 MMOL/L (135-148); TOTAL BILIRUBIN 0.6 MG/DL (0-1.2); TOTAL PROTEIN 7.2 G/DL (6.0-8.5)
[2017-02-05] MEDS ORDERED: DETROLLA4 PO (12:59)
[2017-02-05] MEDS ORDERED: MYRBETRIQ25 MG PO (12:59)
[2017-02-05] MEDS ORDERED: GENTEAL 15 ML O15 ML OPH (13:00)
[2017-02-05] MEDS ORDERED: PEP20 PO (13:00)
[2017-02-05] MEDS ORDERED: KRILLOIL PO (13:01)
[2017-02-05] MEDS ORDERED: BIOTIN5 MG PO (13:01)
[2017-02-05] MEDS ORDERED: VITAMIN B-121000 MC1 SL (13:01)
[2017-02-05] MEDS ORDERED: TRAVATAN Z 0.004% OPH (13:03)
[2017-02-05 13:34] LABS: ASCORBIC ACID (UR NOT ORDER) NEG (NEG); BILIRUBIN, URINE NEGATIVE (NEG); ER URINALYSIS TAT 0 Hrs 00 Mins; KETONE, URINE 20 MG/DL (NEG); LEUKOCYTE ESTERASE(NOT OR NEG (NEG); NITRITE (URINE) NEG (NEG); WBC (NOT ORDERED) (RFLEX) 9 (0-5)
[2017-02-06 05:51] LABS: BASOPHILS 0.3 %; BASOPHILS ABSOLUTE 0.01 10/3/uL (0.0-0.16); EOSINOPHILS 2.3 %; EOSINOPHILS ABSOLUTE 0.09 10/3/uL (0.0-0.53); IMMATURE GRANULOCYTES 0.3 %; IMMATURE GRANULOCYTES ABSOLUTE 0.01 10/3/uL (0.0-0.11); LYMPHOCYTES 23.4 %; LYMPHOCYTES ABSOLUTE 0.92 10/3/uL (0.67-4.30); MEAN CORPUS HGB CONC 31.1 g/dL (32.0-36.0); MEAN CORPUSCULAR HEMOGLOB 24.6 pg (26.0-34.0); MEAN CORPUSCULAR VOLUME 78.9 fL (80-100); MEAN PLATELET VOLUME 11.1 fL (9.2-13.0); MONOCYTES 11.2 %; MONOCYTES ABSOLUTE 0.44 10/3/uL (0.21-1.20); NEUTROPHILS 62.5 %; NEUTROPHILS ABSOLUTE 2.47 10/3/uL (2.02-8.40); RBC DISTRIBUTION WIDTH 16.4 % (12.0-16.0)
[2017-02-06 05:55] LABS: HEMATOCRIT 31.8 % (36.0-48.0); HEMOGLOBIN 9.9 g/dL (12.0-16.0); MANUAL DIFF NO %; PLATELET COUNT 218 10/3/uL (150-400); RED CELL COUNT 4.03 10/6/uL (4.0-5.6); WHITE BLOOD CELLS 3.9 10/3/uL (4.5-10.5)
[2017-02-06 06:08] LABS: A/G RATIO 0.8 (0.7-1.9); ALBUMIN 2.2 G/DL (3.5-5.0); ALKALINE PHOSPHATASE 100 U/L (45-117); BUN (BLOOD UREA NITROGEN) 22 MG/DL (6-23); CALCIUM, SERUM 8.2 MG/DL (8.5-10.4); CHLORIDE, SERUM 111 MMOL/L (96-112); CO2 (CARBON DIOXIDE) 25 MMOL/L (24-34); CREATININE 0.55 MG/DL (0.55-1.02); GFR AFRICAN AMERICAN 101 ML/MIN (>=60); GFR NON AFRICAN AMERICAN 87 ML/MIN (>=60); GLOBULIN 2.7 G/DL (2.5-4.1); GLUCOSE, SERUM 84 MG/DL (60-99); PHOSPHORUS, SERUM 2.2 MG/DL (2.5-4.5); POTASSIUM, SERUM 4.3 MMOL/L (3.5-5.3); SGOT(AST) 9 U/L (5-40); SGPT(ALT) 9 U/L (5-65); SODIUM, SERUM 142 MMOL/L (135-148); TOTAL BILIRUBIN 0.4 MG/DL (0-1.2); TOTAL PROTEIN 4.9 G/DL (6.0-8.5)
[2017-02-08 06:11] LABS: BASOPHILS 0.3 %; BASOPHILS ABSOLUTE 0.01 10/3/uL (0.0-0.16); EOSINOPHILS 6.4 %; HEMOGLOBIN 11.3 g/dL (12.0-16.0); IMMATURE GRANULOCYTES 0.3 %; IMMATURE GRANULOCYTES ABSOLUTE 0.01 10/3/uL (0.0-0.11); LYMPHOCYTES ABSOLUTE 1.12 10/3/uL (0.67-4.30); MEAN CORPUS HGB CONC 31.7 g/dL (32.0-36.0); MEAN CORPUSCULAR HEMOGLOB 25.2 pg (26.0-34.0); MEAN CORPUSCULAR VOLUME 79.5 fL (80-100); MEAN PLATELET VOLUME 10.6 fL (9.2-13.0); MONOCYTES 12.5 %; MONOCYTES ABSOLUTE 0.39 10/3/uL (0.21-1.20); NEUTROPHILS 44.5 %; NEUTROPHILS ABSOLUTE 1.38 10/3/uL (2.02-8.40); PLATELET COUNT 276 10/3/uL (150-400); RBC DISTRIBUTION WIDTH 16.2 % (12.0-16.0); RED CELL COUNT 4.49 10/6/uL (4.0-5.6); WHITE BLOOD CELLS 3.1 10/3/uL (4.5-10.5)
[2017-02-08 06:13] LABS: HEMATOCRIT 35.7 % (36.0-48.0); MANUAL DIFF NO %
[2017-02-08 06:24] LABS: BUN (BLOOD UREA NITROGEN) 9 MG/DL (6-23); CALCIUM, SERUM 8.7 MG/DL (8.5-10.4); CHLORIDE, SERUM 105 MMOL/L (96-112); CO2 (CARBON DIOXIDE) 33 MMOL/L (24-34); CREATININE 0.49 MG/DL (0.55-1.02); GFR AFRICAN AMERICAN 105 ML/MIN (>=60); GFR NON AFRICAN AMERICAN 91 ML/MIN (>=60); GLUCOSE, SERUM 104 MG/DL (60-99); POTASSIUM, SERUM 3.4 MMOL/L (3.5-5.3); SODIUM, SERUM 141 MMOL/L (135-148)
[2017-02-09 06:27] LABS: BASOPHILS 0.6 %; BASOPHILS ABSOLUTE 0.02 10/3/uL (0.0-0.16); EOSINOPHILS 5.2 %; EOSINOPHILS ABSOLUTE 0.17 10/3/uL (0.0-0.53); HEMATOCRIT 35.2 % (36.0-48.0); HEMOGLOBIN 10.7 g/dL (12.0-16.0); IMMATURE GRANULOCYTES 0.3 %; IMMATURE GRANULOCYTES ABSOLUTE 0.01 10/3/uL (0.0-0.11); LYMPHOCYTES 36.3 %; LYMPHOCYTES ABSOLUTE 1.18 10/3/uL (0.67-4.30); MANUAL DIFF NO %; MEAN CORPUS HGB CONC 30.4 g/dL (32.0-36.0); MEAN CORPUSCULAR HEMOGLOB 24.8 pg (26.0-34.0); MEAN CORPUSCULAR VOLUME 81.5 fL (80-100); MEAN PLATELET VOLUME 10.6 fL (9.2-13.0); MONOCYTES ABSOLUTE 0.39 10/3/uL (0.21-1.20); NEUTROPHILS 45.6 %; NEUTROPHILS ABSOLUTE 1.48 10/3/uL (2.02-8.40); PLATELET COUNT 274 10/3/uL (150-400); RBC DISTRIBUTION WIDTH 16.3 % (12.0-16.0); RED CELL COUNT 4.32 10/6/uL (4.0-5.6); WHITE BLOOD CELLS 3.3 10/3/uL (4.5-10.5)
[2017-02-09 06:28] LABS: BUN (BLOOD UREA NITROGEN) 10 MG/DL (6-23); CALCIUM, SERUM 8.6 MG/DL (8.5-10.4); CHLORIDE, SERUM 114 MMOL/L (96-112); CO2 (CARBON DIOXIDE) 30 MMOL/L (24-34); CREATININE 0.54 MG/DL (0.55-1.02); GFR AFRICAN AMERICAN 102 ML/MIN (>=60); GFR NON AFRICAN AMERICAN 88 ML/MIN (>=60); GLUCOSE, SERUM 95 MG/DL (60-99); POTASSIUM, SERUM 3.8 MMOL/L (3.5-5.3); SODIUM, SERUM 149 MMOL/L (135-148)
[2017-02-10] MEDS ORDERED: XALAT OPH (10:11)
[2017-05-01] MEDS ORDERED: FIBERCON PO (05:57)
[2017-05-01] MEDS ORDERED: BIOTIN5 MG PO (05:57)
[2017-05-01] MEDS ORDERED: VITAMIN B-121000 MC1 SL (05:58)
[2017-05-01] MEDS ORDERED: VITD PO (05:59)
[2017-05-01] MEDS ORDERED: PEP20 PO (06:00)
[2017-05-01] MEDS ORDERED: ESTRACE VAGIN42.5 GM V (06:00)
[2017-05-01] MEDS ORDERED: KRILLOIL PO (06:01)
[2017-05-01] MEDS ORDERED: GENTEAL 15 ML O15 ML OPH (06:01)
[2017-05-01] MEDS ORDERED: SYN1 PO (06:02)
[2017-05-01] MEDS ORDERED: CLARIT10 PO (06:02)
[2017-05-01] MEDS ORDERED: MAGOX4 PO (06:02)
[2017-05-01] MEDS ORDERED: MYRBETRIQ25 MG PO (06:04)
[2017-05-01] MEDS ORDERED: DETROLLA4 PO (06:04)
[2017-05-01] MEDS ORDERED: [UNRECOGNIZED DRUG - CODE] (06:05)
[2017-05-01] MEDS ORDERED: TRAVATAN Z OPH (06:06)
[2017-05-02] MEDS ORDERED: MCZ25 PO (14:36)
== END 2017-02-10 14:29 | disposition home or self-care (01) | DRG 390 ==
LOC: ER 11:26 → 5SO 12:11
PROVIDERS: Emergency Medicine; Surgery
DX: K56.69 Other intestinal obstruction (principal); E03.9 Hypothyroidism, unspecified; Z90.49 Acquired absence of other specified parts of digestive tract; Z98.890 Other specified postprocedural states; I25.10 Atherosclerotic heart disease of native coronary artery without angina pectoris; H40.9 Unspecified glaucoma; K21.9 Gastro-esophageal reflux disease without esophagitis; Z88.1 Allergy status to other antibiotic agents; Z79.899 Other long term (current) drug therapy; K58.9 Irritable bowel syndrome, unspecified
CPT/HCPCS: 74000; 74020; 74176; 74250; 80048; 80053; 81001; 82248; 83690; 83735; 84100; 85025; 96374; 99285; A9270-GY; C9113; J2405